=== PATIENT | female | born 1975 | race Caucasian/White ===

== ENCOUNTER 2022-07-03 13:08 | Outpatient (CLI) | payer BC, SELFPAY ==
--- NOTE | 2022-07-03 13:00 | CRLHL7_ITS ---
For Patients: As a result of the Cures Act, medical imaging exams and procedure reports are released immediately into your electronic medical record. You may view this report before your referring provider. If you have questions, please contact your health care provider. Indication: SINUSITIS Technique: Performed without IV contrast Comparison: None available Findings: Frontal sinuses: Clear. Ethmoid sinuses: Clear. Maxillary sinuses: Moderate mucosal thickening within the maxillary sinuses, left greater than right. Postoperative changes are present. The sinus drainage pathway to the nasopharynx is clear on both sides. Sphenoid sinuses: Mild mucosal thickening within the right sphenoid sinus along with a small amount of mucus. The left sphenoid sinus is clear. Partial obstruction of the right sphenoethmoidal recess suspected. Clear left-sided sphenoethmoidal recess. Nasal cavity: Mild rightward curvature of the nasal septum. Small brooke bullosa left middle turbinate. Nasal turbinate mucosal is atrophic. No polyps. No TMJ abnormalities identified. The visualized portions of the orbits, intracranial contents and upper soft tissue neck are grossly negative. Impression: 1. Moderate bilateral maxillary sinus disease, left greater than right. 2. Postop changes are present bilaterally. River curvature of the nasal septum. 3. Mild right sphenoid sinus disease. Please note that all CT scans at this facility use dose modulation, iterative reconstruction, and/or weight-based dosing when appropriate to reduce radiation dose to as low as reasonably achievable. Dictated by Shane King MD @ 07/03/2022 1:59:27 PM (Electronically Signed)
== END 2022-07-03 13:09 | disposition home or self-care (01) ==
PROVIDERS: PCP Physician Assistant Medical; Visit Provider Physician Assistant Medical
DX: J32.0 Chronic maxillary sinusitis (principal); J32.3 Chronic sphenoidal sinusitis
CPT/HCPCS: 70486

== ENCOUNTER 2022-12-02 10:20 | Outpatient (CLI) | payer OTHER, SELFPAY | END 2022-12-02 10:21 | disposition home or self-care (01) | PROVIDERS: PCP Physician Assistant Medical; Visit Provider Physician Assistant Medical | DX: Z01.419 Encounter for gynecological examination (general) (routine) without abnormal findings (principal); Z13.6 Encounter for screening for cardiovascular disorders; Z13.29 Encounter for screening for other suspected endocrine disorder | CPT/HCPCS: 80053; 80061; 84443 ==

== ENCOUNTER 2024-10-09 13:58 | Outpatient (CLI) | payer BC, SELFPAY ==
--- NOTE | 2024-10-09 14:00 | CRLHL7_ITS ---
For Patients: As a result of the Century Cures Act, medical imaging exams and procedure reports are released immediately into your electronic medical record. You may view this report before your referring provider. If you have questions, please contact your health care provider. BILATERAL SCREENING MAMMOGRAM WITH COMPUTER-AIDED DETECTION AND TOMOSYNTHESIS TECHNIQUE: CC and MLO views were obtained. These mammographic images have been obtained using full-field digital technique. These mammographic images were interpreted with the benefit of computer-aided detection. Breast Tomosynthesis was used in this interpretation. COMPARISON FILM: 12/19/21, 08/04/16, 12/20/14. FINDINGS: There are scattered areas of fibroglandular density. IMPRESSION: There is no radiographic evidence for malignancy. ASSESSMENT: BI-RADS Category 1: Negative RECOMMENDATION: Routine screening mammogram in 1 year. A lay language report of this examination will be provided to the patient. Shane King M.D. Diagnostic Radiologist [email or web address] SP/Dictated by: Shane King MD @ 10/11/2024 12:28:00 PM (Electronically Signed)
== END 2024-10-09 13:59 | disposition home or self-care (01) ==
LOC: MAMMO 14:01
PROVIDERS: PCP Physician Assistant Medical; Visit Provider Physician Assistant Medical
DX: Z12.31 Encounter for screening mammogram for malignant neoplasm of breast (principal)
CPT/HCPCS: 77063; 77067

== ENCOUNTER 2025-05-28 16:54 | Outpatient (CLI) | payer BC, SELFPAY | END 2025-05-28 16:55 | disposition home or self-care (01) | LOC: NFLDREF 05-31 09:39 | PROVIDERS: PCP Physician Assistant Medical; Referring Provider Physician Assistant Medical | DX: N75.0 Cyst of Bartholin's gland (principal) | CPT/HCPCS: 87086 ==

== ENCOUNTER 2025-07-18 10:00 | Outpatient (CLI) | payer BC, SELFPAY ==
[2025-07-18 12:32] LABS: Bacterial Vaginosis* Negative (Negative); Candida glab/krus NOT DETECTED (No Detected)
== END 2025-07-18 10:01 | disposition home or self-care (01) ==
PROVIDERS: PCP Physician Assistant Medical; Visit Provider Registered Nurse
DX: N89.8 Other specified noninflammatory disorders of vagina (principal); R39.198 Other difficulties with micturition
CPT/HCPCS: 81513; 87086; 87481; 87661